=== PATIENT | male | born 1955 | race Caucasian/White ===

== ENCOUNTER → 2017-06-29 | Day surgery (SDC) | payer OTHER ==
[~2017-06-29] VITALS: Ht 175.3 cm; Wt 81.7 kg
[~2017-06-29] MED LIST: 0.9% Sodium Chloride 1,000 ML IV SCH; ASPI-973 PO; ATRV10T PO; LISI10TA PO; Sodium Chloride LOK Flush 10 mL Syringe IV PRN; USTE45DI SQ; fentaNYL-PF 50 mCg/mL 2 mL Inj IVPUSH PRN
[2017-06-29 08:00] VITALS: BP 152/84; PULSE 50; RESP 16; O2SAT 97
[2017-06-29 08:44] VITALS: BP 131/67; PULSE 61; RESP 17; O2SAT 96
[2017-06-29 08:55] VITALS: BP 121/67; PULSE 56; RESP 16; O2SAT 97
--- NOTE | 2017-06-29 08:57 | ENDO ---
[address] [address] ENDOSCOPY PROCEDURE PATIENT: DELILAH ARCE : 1955 MR#: [id number] ADMIT: 06/29/2017 JOB ID: [id number] OPERATION: Colonoscopy. PREOPERATIVE DIAGNOSIS(ES): History of colon polyps. POSTOPERATIVE DIAGNOSIS(ES): Small internal hemorrhoids. ANESTHESIA: Fentanyl 100 mcg, Versed 4 mg IV administered. COMPLICATIONS: None. BLOOD LOSS: Minimal. DESCRIPTION OF PROCEDURE: After the risks and benefits were explained to the patient, informed consent was obtained. After anesthesia administered, colonoscope was inserted from rectum to cecum. Mucosa was carefully examined. The prep of the patient was fair. After the procedure was done, the scope was withdrawn and the procedure terminated. FINDINGS: Upon inspection of the anus, no masses, hemorrhoids, ulcers are seen. Throughout the entire examination, no polyps, masses. Retroflexion showed small internal hemorrhoids. IMPRESSION: Small internal hemorrhoids. RECOMMENDATIONS: Stool softener as needed. Repeat colonoscopy in five years given history of colon polyps.
== END | disposition home or self-care (01) ==
LOC: END 01:40
PROVIDERS: ATTEND Internal Medicine Gastroenterology
DX: Z12.11 Encounter for screening for malignant neoplasm of colon (principal); K64.8 Other hemorrhoids; Z86.010 Personal history of colon polyps; Z87.891 Personal history of nicotine dependence